=== PATIENT | female | born 1980 | race Caucasian/White ===

== ENCOUNTER 2020-12-29 21:29 | Emergency (ER) | payer BC, OTHER ==
[2020-12-29 22:00] VITALS: BP 117/61; PULSE 89; TEMP 98.6
[2020-12-29] MEDS ORDERED: DIPHTH,PERTUSS(ACELL),TET 0.5 ML DISP.SYRIN IM ONE ×2 (22:08→22:21)
[2020-12-29] MEDS ORDERED: BACITRACIN 0.9 GM PACKET TP ONE (22:08)
[2020-12-29] MEDS ORDERED: BACITRACIN 15 GM TUBE TOPICAL OINTMENT ONE (22:21)
== END 2020-12-29 23:26 | disposition home or self-care (01) ==
LOC: JER 21:29
PROC: 3E0234Z Introduction of Serum, Toxoid and Vaccine into Muscle, Percutaneous Approach (ICD-10-PCS; principal; 2020-12-29)
DX: S80.211A Abrasion, right knee, initial encounter (principal)
CPT/HCPCS: 73562-TC-RT-FY; 90715; 99284-25

== ENCOUNTER 2020-12-31 17:41 | Emergency (ER) | payer OTHER ==
[2020-12-31 18:03] VITALS: BMI 19.9
[2020-12-31] MEDS ORDERED: VANCOMYCIN 1,000 MG in DEXTROSE 5%-WATER - 250 ML IVPB ONE (19:40)
[2020-12-31] MEDS ORDERED: PIPERACILLIN/TAZOB 3.375 GM 3.375 GM in DEXTROSE 5%-WATER - 50 ML IVPB SCH ×2 (20:00→22:00)
[2020-12-31 20:26] LABS: BASO % 0.2 % (0-2.0); EOS % 2.6 % (0-4.5); HEMATOCRIT 36.4 % (32.4-45.2); HEMOGLOBIN 12.2 GM/dL (10.7-15.3); LYMPH % 26.8 % (8-40); MCH 29.9 pg (25.7-33.7); MCHC 33.6 g/dl (32.0-36.0); MEAN PLT VOLUME 8.9 fl (7.5-11.1); MONO % 13.2 % (3.8-10.2); NEUT % 57.2 % (42.8-82.8); PLATELET COUNT 221 K/MM3 (134-434); RBC 4.09 M/mm3 (3.60-5.2); WHITE BLOOD COUNT 5.9 K/mm3 (4.0-10.0)
[2020-12-31 20:29] LABS: INR 1.36 (0.83-1.09); PROTHROMBIN TIME (PATIENT) 16.3 SEC (9.7-13.0)
[2020-12-31 20:46] LABS: POTASSIUM 3.6 mmol/L (3.5-5.1)
[2020-12-31 20:48] LABS: ALBUMIN 3.8 g/dl (3.4-5.0); CALCIUM 8.5 mg/dL (8.5-10.1)
[2020-12-31 20:49] LABS: BLOOD UREA NITROGEN 17.6 mg/dL (7-18)
[2020-12-31 20:52] LABS: CREATININE 0.7 mg/dL (0.55-1.3)
[2020-12-31 20:53] LABS: BILIRUBIN,TOTAL 0.3 mg/dL (0.2-1); TOT PROT 7.2 g/dl (6.4-8.2)
[2020-12-31 21:39] VITALS: BP 128/61; PULSE 82
== END 2020-12-31 21:39 | disposition home or self-care (01) ==
LOC: JER 17:41
DX: L03.115 Cellulitis of right lower limb (principal)
CPT/HCPCS: 36415; 73562-TC-RT-FY; 80053; 83605; 85025; 85610; 85651; 86140; 87040; 99284-25

== ENCOUNTER 2021-01-02 14:34 | Emergency (ER) | payer OTHER ==
[2021-01-02 14:52] VITALS: BP 118/89; PULSE 91; TEMP 98.4
== END 2021-01-02 17:26 | disposition home or self-care (01) ==
LOC: JERFT 14:34
DX: S83.91XD Sprain of unspecified site of right knee, subsequent encounter (principal)
CPT/HCPCS: 73560-TC-LT-FY; 73560-TC-RT-FY; 99284-25

== ENCOUNTER 2021-05-30 20:49 | Emergency (ER) | payer OTHER ==
[2021-05-30 21:02] VITALS: TEMP 98.1; BMI 19.7
[2021-05-30] MEDS ORDERED: ACETAMINOPHEN 1000 MG/100 ML VIAL (NON FORMULARY) IVPB ONE (22:38)
[2021-05-30] MEDS ORDERED: ACETAMINOPHEN INJECTION 100 ML IVPB ONE (22:44)
[2021-05-30 23:06] LABS: BASO % 0.2 % (0-2.0); EOS % 0.7 % (0-4.5); HEMATOCRIT 36.5 % (32.4-45.2); HEMOGLOBIN 12.3 GM/dL (10.7-15.3); LYMPH % 10.5 % (8-40); MCH 29.5 pg (25.7-33.7); MCHC 33.8 g/dl (32.0-36.0); MEAN CELL VOLUME 87.2 fl (80-96); MEAN PLT VOLUME 8.3 fl (7.5-11.1); MONO % 8.2 % (3.8-10.2); NEUT % 80.4 % (42.8-82.8); PLATELET COUNT 227 10^3/uL (134-434); RBC 4.18 M/mm3 (3.60-5.2); RDW 13.5 % (11.6-15.6); WHITE BLOOD COUNT 9.6 K/mm3 (4.0-10.0)
[2021-05-30 23:34] LABS: CHLORIDE 107 mmol/L (98-107); SODIUM 140 mmol/L (136-145)
[2021-05-30 23:36] LABS: BLOOD UREA NITROGEN 13.3 mg/dL (7-18); CALCIUM 8.4 mg/dL (8.5-10.1)
[2021-05-30 23:37] LABS: ALBUMIN 3.8 g/dl (3.4-5.0); ANION GAP 9 MMOL/L (8-16); CO2 24 mmol/L (21-32); GLUCOSE,RANDOM 91 mg/dL (74-106)
[2021-05-30 23:40] LABS: CREATININE 0.6 mg/dL (0.55-1.3); SGOT/AST 13 U/L (15-37); SGPT/ALT 16 U/L (13-61)
[2021-05-30 23:42] LABS: BILIRUBIN,TOTAL 0.5 mg/dL (0.2-1); TOT PROT 7.4 g/dl (6.4-8.2)
[2021-05-30 23:43] LABS: ALK PHOS 58 U/L (45-117)
[2021-05-31 04:45] VITALS: BP 111/69; PULSE 72
== END 2021-05-31 04:46 | disposition home or self-care (01) ==
LOC: JER 20:49
PROC: 3E033GC Introduction of Other Therapeutic Substance into Peripheral Vein, Percutaneous Approach (ICD-10-PCS; principal; 2021-05-30)
DX: R07.9 Chest pain, unspecified (principal)
CPT/HCPCS: 36415; 71046-TC-FY; 80053; 82550; 84484; 85025; 85379; 93005; 93010; 99285-25; J0131

== ENCOUNTER 2024-06-21 13:27 | Emergency (ER) | payer OTHER ==
[2024-06-21 13:36] VITALS: TEMP 98; BMI 20.5
[2024-06-21] MEDS ORDERED: FAMOTIDINE 20 MG/50 ML IVPB 20 MG/50 ML MG IVPB ONE (14:15)
[2024-06-21] MEDS ORDERED: ONDANSETRON 4 MG/2 ML VIAL ONE (14:15)
[2024-06-21 14:21] LABS: HEMATOCRIT 38.3 % (32.4-45.2); HEMOGLOBIN 12.9 GM/dL (10.7-15.3); MCHC 33.7 g/dl (32.0-36.0); MEAN CELL VOLUME 86.1 fl (80-96); PLATELET COUNT 260 10^3/uL (134-434); RBC 4.46 M/mm3 (3.60-5.2); RDW 15.2 % (11.6-15.6); WHITE BLOOD COUNT 14.1 K/mm3 (4.0-10.0)
[2024-06-21] MEDS: FAMOTIDINE 20 MG/50 ML IVPB 20 MG/50 ML MG IVPB ONE (14:23)
[2024-06-21] MEDS: LACTATED RINGERS SOLUTION 1000 ML INFUS.BAG IV ONE ×2 (14:23→16:29)
[2024-06-21] MEDS: ONDANSETRON 4 MG/2 ML VIAL IVPUSH ONE (14:23)
[2024-06-21 14:42] LABS: POTASSIUM 3.9 mmol/L (3.5-5.1)
[2024-06-21 14:45] LABS: ALBUMIN 3.6 g/dl (3.4-5.0); BLOOD UREA NITROGEN 12.8 mg/dL (7-18); CALCIUM 8.8 mg/dL (8.5-10.1); MAGNESIUM 1.8 mg/dL (1.8-2.4)
[2024-06-21 14:47] LABS: CREATININE 0.9 mg/dL (0.55-1.3)
[2024-06-21 14:50] LABS: BILIRUBIN,TOTAL 0.8 mg/dL (0.2-1); TOT PROT 7.2 g/dl (6.4-8.2)
[2024-06-21] MEDS: ACETAMINOPHEN 1000 MG/100 ML BAG IVPB ONE (14:56)
[2024-06-21] MEDS ORDERED: ACETAMINOPHEN INJECTION 100 ML IVPB ONE (14:56)
[2024-06-21 15:00] LABS: ANISOCYTOSIS 0; MACROCYTOSIS 0
[2024-06-21 17:33] VITALS: BP 107/51; PULSE 85; RESP 16
[2024-06-21 17:50] LABS: PH,URINE 6.5 (5.0-8.0); URINE APPEARANCE CLEAR; URINE BILIRUBIN NEGATIVE (NEGATIVE); URINE COLOR YELLOW; URINE GLUCOSE (UA) NEGATIVE (NEGATIVE); URINE KETONE TRACE (NEGATIVE); URINE NITRITE NEGATIVE (NEGATIVE); URINE PROTEIN NEGATIVE (NEGATIVE); URINE UROBILINOGEN 0.2 mg/dL (0.2-1.0)
[2024-06-21 17:51] LABS: URINE LEUK ESTERASE NEGATIVE (NEGATIVE)
== END 2024-06-21 18:14 | disposition home or self-care (01) ==
LOC: JER 13:27
PROC: 3E033GC Introduction of Other Therapeutic Substance into Peripheral Vein, Percutaneous Approach (ICD-10-PCS; principal; 2024-06-21)
PROC: 3E033GC Introduction of Other Therapeutic Substance into Peripheral Vein, Percutaneous Approach (ICD-10-PCS; 2024-06-21)
PROC: 3E033NZ Introduction of Analgesics, Hypnotics, Sedatives into Peripheral Vein, Percutaneous Approach (ICD-10-PCS; 2024-06-21)
DX: R11.2 Nausea with vomiting, unspecified (principal); R50.9 Fever, unspecified; E86.0 Dehydration; R10.84 Generalized abdominal pain; R51.9 Headache, unspecified
CPT/HCPCS: 36415; 74177-TC; 80053; 81003; 83690; 83735; 84703; 85025; 87045; 87046; 87086; 99285-25; J0131; Q9967